=== PATIENT | male | born 1945 | race Caucasian/White ===

== ENCOUNTER → 2016-10-01 | Outpatient (CLI) | payer OTHER, BC ==
[~2016-10-01] MED LIST: ASPIR 8181 MG PO; BENEFIBER1 EAC1 PO; BISACODYL SUPP10 MG RECTAL; CRESTOR10 MG PO; DEMADEX20 MG PO; GLUCOPHAGE XR500 MG PO; LIPITOR10 MG PO; LISINOPRIL20 MG PO; MAG-AL PLUS XS30 ML PO; METFORMIN HCL500 MG PO; NABUMETONE 500500 M1 PO; NEURONTIN 300300 M1 PO; NORCO 10-325 T1 EACH PO; PREDNISONE 20 M20 MG PO; SENNA PO; STOOL SOFTENER100 MG PO; TRAMADOL 50 MG50 MG PO; TYLENOL325 MG PO
== END ==
LOC: RAD 10:37
DX: Z01.811 Encounter for preprocedural respiratory examination (principal); J18.9 Pneumonia, unspecified organism; Z85.46 Personal history of malignant neoplasm of prostate

== ENCOUNTER 2016-11-25 06:09 | Inpatient (IN) | payer OTHER, BC ==
[2016-11-13 08:48] LABS: URINE BILIRUBIN NEGATIVE (Negative); URINE BLOOD NEGATIVE (Negative); URINE COLOR YELLOW; URINE GLUCOSE-RANDOM* NEGATIVE (Negative); URINE KETONES NEGATIVE (Negative); URINE LEUKOCYTES-REFLEX NEGATIVE (Negative); URINE PROTEIN (DIPSTICK) NEGATIVE (Negative); URINE UROBILINOGEN 0.2 E.U./dl (0.2-1.0)
[2016-11-13 08:50] LABS: HEMOGLOBIN 12.2 gm/dL (14.0-18.0); MCH 32.9 pg (26.0-34.0); MCHC 33.7 g/dL (28.0-37.0); MCV 97.5 fL (80.0-100.0); RBC 3.69 mil/uL (4.50-6.00); RDW 13.4 % (10.5-14.5); WBC 5.9 thou/uL (4.0-11.0)
[2016-11-13 08:52] LABS: PROTIME 9.7 Seconds (9.3-11.4)
[2016-11-13 08:53] LABS: ALBUMIN 3.9 g/dL (3.4-5.0); CALCIUM 9.3 mg/dL (8.5-10.1); POTASSIUM 4.2 mmol/L (3.5-5.1)
[~2016-11-25] VITALS: Ht 177.8 cm; Wt 166.0 kg
--- NOTE | ~2016-11-25 | EKG ---
[address] [address] ELECTROCARDIOGRAM REPORT Name: ELLEN PINA Room #: PRE IN [facility]#: [id number] Admission: Attend Phys: Christopher Moise MD Discharge: Date of : 47 Report #: [id number] THIS REPORT FOR: //name// [facility] Test Date: 2016-11-13 Test Time: 08:36:35 Pat Name: ELLEN PINA Department: Room: Gender: Registered Nurse Step Down: ROMAN MCDONALD : 1945 Requested By: Christopher Moise Order Number: [id number] MD: Adriano Mullins Measurements Intervals Weir Rate: 83 P: 82 RI: 217 QRS: 86 QRSD: 108 T: 22 QT: 388 QTc: 456 Interpretive Statements Sinus rhythm Borderline prolonged RI interval Borderline right axis deviation Baseline wander in lead(s) V2,V3,V4,V5,V6 Compared to ECG 05/03/2015 18:27:19 Sinus tachycardia no longer present Electronically Signed On 11-17-2016 21:49:59 CDT by Adriano Mullins [email or web address] <ELECTRONICALLY SIGNED> By: Adriano Mullins MD 11/17/16 2149 0836 Adriano Mullins MD /EPI
--- NOTE | ~2016-11-25 | D ---
[facility] [place] [address] DISCHARGE SUMMARY Name: ELLEN PINA Shawn Room #: 407[facility]P [facility] ..#: [id number] Admission: 12/23/16 Attend Phys: Christopher Moise MD Discharge: 12/27/16 Date of : 47 Report #: [id number] THIS REPORT FOR: //name// CC: Christopher Ding DATE OF SERVICE: 12/27/2016 FINAL DIAGNOSES: 1. End-stage degenerative arthritis, left knee. 2. Chronic morbid obesity. 3. Diabetes type 2. 4. Hypertension. 5. Pulmonary insufficiency and sleep apnea related to obesity and narcotic medications. OPERATIONS AND PROCEDURES: Left total knee arthroplasty. HISTORY OF PRESENT ILLNESS: This morbidly obese 71-year-old gentleman has had problems with degenerative arthritis in both knees. He underwent a right total knee replacement in the past with good result. He is admitted at this time for a left total knee replacement. We had multiple discussions and lengthy evaluation preoperatively to try to optimize his general medical condition. He is at significantly increased risk for problems given his morbid obesity. Recently, his glucose have been satisfactory and well maintained. His pulmonary status is fair due to his obesity and sleep apnea symptoms, he is felt to be a satisfactory candidate for this procedure, although he is at increased risk. HOSPITAL COURSE: The patient was admitted and taken to the operating room on 12/23. He underwent a left total knee replacement, which he tolerated surprisingly well. Postoperatively, his discomfort was significant and controlled with IV analgesics and oral analgesics. He did have a period of some relative oversedation and mild hypoxia, which was improved by O2 supplementation and decreasing his narcotic medications. He was able to resume his regular preoperative diet and his routine preoperative medications. He was seen by therapy and slowly advanced with some difficulty given his size. At this point, he seems to be safe and independent with ambulation using a walker. His pulmonary function has improved, initially he required 4 liters of oxygen with good O2 sats at that level and today is now back on room air with adequate O2 sats following his physical therapy and ambulation. He seems to be safe and ready for discharge home. We will plan some visiting therapy at home and continue routine medical management. DISCHARGE MEDICATIONS: Include torsemide 20 mg daily, Lipitor 10 mg daily, tramadol 50 mg q.4 hours p.r.n. mild pain, hydrocodone 10 mg p.o. q.[address] [address] DISCHARGE SUMMARY Name: ELLEN PINA Room #: 407[facility] ..#: [id number] Admission: 12/23/16 Attend Phys: Christopher Moise MD Discharge: 12/27/16 Date of : 47 Report #: [id number] p.r.n. more severe pain, amlodipine 5 mg daily, glyburide 5 mg b.i.d., mirabegron 50 mg once daily, Pravachol 80 mg at bedtime, Hytrin 5 mg at bedtime, metformin 1000 mg b.i.d., and Xarelto 10 mg daily for the coming 3 weeks. He will continue activity with assistance at home using a walker for protected ambulation. I have asked the patient or to call me should there be any problems or questions. We can see him back in the office next week for routine evaluation and then the following week for suture removal. He will follow up with his primary care physician with regard to general medical management. <ELECTRONICALLY SIGNED> By: Christopher Moise MD 12/30/16 0753 1359 1517 Christopher Moise MD /nt
--- NOTE | ~2016-11-25 | O ---
[facility] [place] [address] OPERATIVE REPORT Name: ELLEN PINA Room #: 407-P [facility] IN M.R.#: [id number] Admission: 12/23/16 Attend Phys: Christopher Moise MD Discharge: Date of : 47 Report #: [id number] THIS REPORT FOR: //name// CC: Christopher Ding DATE OF SERVICE: 12/23/2016 DATE OF SERVICE: 12/23/2016 PREOPERATIVE DIAGNOSIS: End-stage degenerative arthritis, left knee. POSTOPERATIVE DIAGNOSIS: End-stage degenerative arthritis, left knee. PROCEDURE: Left total knee arthroplasty. SURGEON: Christopher Moise MD INDICATIONS: This heavy 71-year-old gentleman has problems with progressive degenerative arthritis in multiple joints. He underwent previous total joint arthroplasty in the opposite extremity. He now has progressive pain and deformity involving the left knee. Clinical evaluation and x-rays reveal rather severe end-stage degenerative arthritis with moderate varus malalignment and medial compartment narrowing. We have tried to stabilize his other general medical issues as best we can as he does have problems with poorly controlled diabetes and obesity. Nevertheless, he seems to be stable and a satisfactory candidate for total joint replacement. He and his understand the potential risks and benefits well. We have discussed this at some length with the patient and with his primary care physician, Dr. Ding. DESCRIPTION OF PROCEDURE: The patient was taken to the operating room where he was placed under general anesthesia. A femoral nerve block was also applied. The left knee and leg were meticulously prepped and draped. Prophylactic intravenous antibiotics were administered. A thigh tourniquet was inflated to 325 mmHg. An anterior longitudinal skin incision was made and carried through the medial retinaculum. The patella was reflected laterally. Moderately severe degenerative change in all 3 compartments was noted. Intramedullary guides were used on both the femur and the tibia. The Castro and NephMotivano knee system was utilized. The femur was cut in 5 degrees of valgus. The femur seemed best suited for a size 6 femoral component. The tibial surface was resected perpendicular to the long axis of the tibia. A size 6 tibial component also seemed to fit nicely. The patellar surface was resected and a 38 mm patellar button seemed to fit most appropriately. Appropriate anchor holes were created. A trial reduction was performed and the knee seemed best suited for a 15-mm polyethylene insert. This allowed full knee extension and satisfactory flexion with acceptable stability. The trial components were removed. The [address] [address] OPERATIVE REPORT Name: ELLEN PINA Shawn Room #: 407-P [facility] IN .R.#: [id number] Admission: 12/23/16 Attend Phys: Christopher Moise MD Discharge: Date of : 47 Report #: [id number] intramedullary canal was blocked with a bone block on both the femoral and tibial sides. The surfaces were thoroughly irrigated and dried. Methyl methacrylate cement was mixed and injected into the porous surface of the proximal tibia. The Castro and Nephew size 6, left tibial component was then impacted into position. It seated nicely and appeared to be secure. Excess cement was removed from around its margin. A 15-mm polyethylene insert was snapped into place. It also seated nicely and appeared to be secure. A size 6 left femoral component was then impacted on to the distal femur in a noncemented technique. The patellar button was cemented into place and secured with a patellar clamp until the cement had hardened. All excess cement was removed from around its margin. Alignment, range of motion and stability were once again assessed and felt to be satisfactory. A single Hemovac drain was left in the wound exiting through a separate lateral stab incision. The tourniquet was then deflated after a total tourniquet time of 60 minutes. The fascia was closed with multiple #1 Vicryl sutures. The subcutaneous tissues were closed with 0 Monocryl. The skin was closed with skin lópez. A sterile dressing was applied. The patient was then awakened and returned to recovery room in good condition. <ELECTRONICALLY SIGNED> By: Christopher Moise MD 12/24/16 0758 1211 1240 Christopher Moise MD /nt
[~2016-11-25 06:09] MED LIST changes: +GLUCOPHAGE1000 MG PO; +GLYBURIDE 5 MG T5 M1 PO; +HYTRIN 5 M5 MG/1 CAP PO; +MYRBETRIQ50 MG PO; +NORVASC5 MG PO; +PRAVACHOL80 MG PO
[2016-12-10 09:09] LABS: URINE BILIRUBIN NEGATIVE (Negative); URINE BLOOD NEGATIVE (Negative); URINE COLOR YELLOW; URINE GLUCOSE-RANDOM* NEGATIVE (Negative); URINE KETONES NEGATIVE (Negative); URINE NITRITE NEGATIVE (Negative); URINE PROTEIN (DIPSTICK) NEGATIVE (Negative); URINE SPECIFIC GRAVITY 1.015 (1.003-1.035); URINE UROBILINOGEN 0.2 E.U./dl (0.2-1.0)
[2016-12-10 09:12] LABS: HEMOGLOBIN 13.1 gm/dL (14.0-18.0); MCH 33.8 pg (26.0-34.0); MCHC 35.5 g/dL (28.0-37.0); MCV 95.2 fL (80.0-100.0); RBC 3.89 mil/uL (4.50-6.00); RDW 13.2 % (10.5-14.5); WBC 5.8 thou/uL (4.0-11.0)
[2016-12-10 09:21] LABS: ALBUMIN 4.1 g/dL (3.4-5.0); CALCIUM 9.3 mg/dL (8.5-10.1); POTASSIUM 4.2 mmol/L (3.5-5.1)
[2016-12-10 09:25] LABS: PROTIME 9.9 Seconds (9.3-11.4)
[2016-12-11 02:11] LABS: GLYCOHEMOGLOBIN (HGB A1C) 6.4 % (4.8-5.6)
[2016-12-23] VITALS (8 sets, daily range): BP systolic 128–189; BP diastolic 65–92
[2016-12-24 00:59] VITALS: BP 132/62
[2016-12-24 04:26] VITALS: BP 123/62
[2016-12-24 05:30] LABS: HEMOGLOBIN 9.9 gm/dL (14.0-18.0); MCH 31.9 pg (26.0-34.0); MCHC 32.9 g/dL (28.0-37.0); MCV 96.8 fL (80.0-100.0); RBC 3.1 mil/uL (4.50-6.00)
[2016-12-24 07:43] VITALS: BP 138/54
[2016-12-24 09:14] LABS: CALCIUM 8.4 mg/dL (8.5-10.1); CREATININE 0.9 mg/dL (0.7-1.3); POTASSIUM 4.4 mmol/L (3.5-5.1)
[2016-12-24 11:53] VITALS: BP 132/53
[2016-12-24 16:03] VITALS: BP 115/92
[2016-12-24 19:52] VITALS: BP 161/65
[2016-12-25 04:35] VITALS: BP 159/76
[2016-12-25 07:57] LABS: HEMATOCRIT 29.1 % (42.0-52.0); HEMOGLOBIN 9.8 gm/dL (14.0-18.0); MCH 32.4 pg (26.0-34.0); MCHC 33.8 g/dL (28.0-37.0); MCV 95.8 fL (80.0-100.0); RBC 3.04 mil/uL (4.50-6.00); WBC 11.2 thou/uL (4.0-11.0)
[2016-12-25 08:00] VITALS: BP 151/64
[2016-12-25 10:14] VITALS: BP 151/64
[2016-12-25 16:00] VITALS: BP 134/62
[2016-12-26 04:00] VITALS: BP 153/75
[2016-12-26 06:07] LABS: HEMATOCRIT 29.7 % (42.0-52.0); HEMOGLOBIN 9.8 gm/dL (14.0-18.0); MCH 32.1 pg (26.0-34.0); MCHC 32.9 g/dL (28.0-37.0); MCV 97.8 fL (80.0-100.0); RBC 3.04 mil/uL (4.50-6.00); RDW 12.7 % (10.5-14.5); WBC 11.5 thou/uL (4.0-11.0)
[2016-12-26 06:08] LABS: URINE BILIRUBIN NEGATIVE (Negative); URINE BLOOD NEGATIVE (Negative); URINE COLOR YELLOW; URINE GLUCOSE-RANDOM* NEGATIVE (Negative); URINE KETONES NEGATIVE (Negative); URINE LEUKOCYTES-REFLEX NEGATIVE (Negative); URINE PROTEIN (DIPSTICK) 1+ (Negative); URINE SPECIFIC GRAVITY 1.025 (1.003-1.035); URINE UROBILINOGEN 0.2 E.U./dl (0.2-1.0)
[2016-12-26 06:33] VITALS: BP 133/62
[2016-12-26 06:37] LABS: CASTS None Seen /LPF (None Seen); SQUAMOUS 0-3 Few /LPF (0-3)
[2016-12-26 06:38] LABS: URINE WBC-REFLEX 0-5 Rare /HPF (0-5)
[2016-12-26 06:39] LABS: CRYSTALS None Seen /LPF (None Seen); URINE RBC None Seen /HPF (0-2)
[2016-12-26 07:50] VITALS: BP 125/64
[2016-12-26 08:06] LABS: CALCIUM 9.1 mg/dL (8.5-10.1); CREATININE 1.2 mg/dL (0.7-1.3); POTASSIUM 4.4 mmol/L (3.5-5.1)
[2016-12-26 20:21] VITALS: BP 155/61
[2016-12-27] VITALS: BP 123/60
[2016-12-27 06:18] VITALS: BP 160/73
[2016-12-27 07:53] VITALS: BP 163/75
[2016-12-27 09:18] LABS: HEMATOCRIT 26.9 % (42.0-52.0); MCH 32.1 pg (26.0-34.0); MCHC 33.5 g/dL (28.0-37.0); MCV 95.7 fL (80.0-100.0); RBC 2.81 mil/uL (4.50-6.00); WBC 7.7 thou/uL (4.0-11.0)
[2016-12-27 09:30] LABS: CALCIUM 8.9 mg/dL (8.5-10.1)
[2016-12-27 12:14] VITALS: BP 151/64
== END 2016-12-27 15:13 | disposition home health service (06) | DRG 470 ==
LOC: PRE 06:09 → 4N 12-23 06:30 → TBA 12-23 06:30 → PRE 12-23 08:25 → 4N 12-23 14:00 → ENTRNSPT 12-27 14:58 → EDTRNSPTSTS 12-27 15:01 → 4N 12-27 15:13
PROVIDERS: Internal Medicine; Nurse Practitioner Acute Care; Orthopaedic Surgery
PROC: 0SRD0J9 Replacement of Left Knee Joint with Synthetic Substitute, Cemented, Open Approach (ICD-10-PCS; principal; 2016-12-23)
DX: M17.12 Unilateral primary osteoarthritis, left knee (principal); Z68.43 Body mass index [BMI] 50.0-59.9, adult; R65.10 Systemic inflammatory response syndrome (SIRS) of non-infectious origin without acute organ dysfunction; J98.11 Atelectasis; E66.01 Morbid (severe) obesity due to excess calories; E11.9 Type 2 diabetes mellitus without complications; I10 Essential (primary) hypertension; T40.605A Adverse effect of unspecified narcotics, initial encounter; E87.70 Fluid overload, unspecified; J98.4 Other disorders of lung; E78.00 Pure hypercholesterolemia, unspecified; M17.11 Unilateral primary osteoarthritis, right knee; G47.30 Sleep apnea, unspecified; E78.5 Hyperlipidemia, unspecified; Z88.8 Allergy status to other drugs, medicaments and biological substances; Z85.46 Personal history of malignant neoplasm of prostate; Z98.49 Cataract extraction status, unspecified eye; Z90.49 Acquired absence of other specified parts of digestive tract; Z98.52 Vasectomy status
CPT/HCPCS: 10790; 50010; 50101; 50415; 50954; 51130; 51225; 51412; 51771; 53000; 53364; 56525; 62110; 62900; 70005

== ENCOUNTER 2017-03-20 07:43 | Day surgery (SDC) | payer OTHER, BC ==
--- NOTE | ~2017-03-20 | O ---
[facility] [place] [address] OPERATIVE REPORT Name: ELLEN PINA Room #: 150-6 [facility] M..#: [id number] Admission: 03/20/17 Attend Phys: Christopher Moise MD Discharge: Date of : 47 Report #: [id number] THIS REPORT FOR: //name// CC: Christopher Ding DATE OF SERVICE: 03/20/2017 PREOPERATIVE DIAGNOSES: Status post left total knee arthroplasty with postoperative arthrofibrosis and limited flexion range of motion. POSTOPERATIVE DIAGNOSES: Status post left total knee arthroplasty with postoperative arthrofibrosis and limited flexion range of motion. PROCEDURE: Manipulation under anesthesia, left knee for lysis of adhesions and improve range of motion. SURGEON: Christopher Moise MD INDICATIONS: This 72-year-old obese gentleman underwent left total knee arthroplasty 2 months ago. The surgery went well and he has done nicely, but has made rather poor progress with range of motion with flexion from 0 through 90 degrees. We have elected to go ahead with manipulation under anesthesia to see if we can get any better knee flexion. DESCRIPTION OF PROCEDURE: The patient was taken to the operating room where he placed under a brief sedation anesthetic. The left knee was then manipulated. Initially, he has full knee extension and flexion to 90 degrees with a gentle, but firm and repetitive manipulation, I was able to gradually achieve a better flexion, I did feel some soft tissue crepitus, which would be consistent with lysis of adhesions and arthrofibrosis. Gradually, the range of motion could be extended to a flexion of about 115-120 degrees. I doubt that we will get much movement beyond that level given his large size. The knee continues to have full knee extension and there was good stability with varus and valgus stress. No other abnormalities were identified. After 10-15 minutes of manipulation, I felt we had achieved all the additional movement that we probably could. The patient was then awakened and returned to recovery room in good condition. He will continue his outpatient therapy program. By: 1056 1221 Christopher Moise MD /nt
[2017-03-20 08:37] VITALS: BP 137/77
[2017-03-20 09:08] LABS: CALCIUM 9.2 mg/dL (8.5-10.1); CREATININE 0.9 mg/dL (0.7-1.3); POTASSIUM 4.2 mmol/L (3.5-5.1)
[2017-03-20 11:28] VITALS: BP 137/77
== END 2017-03-20 15:30 | disposition home or self-care (01) ==
LOC: OR 07:43 → TBA 07:44 → OR 15:30
PROVIDERS: Orthopaedic Surgery
DX: M24.662 Ankylosis, left knee (principal); Z98.890 Other specified postprocedural states; E11.9 Type 2 diabetes mellitus without complications
CPT/HCPCS: 50010; 50101; 62110; 62850; 70005

== ENCOUNTER → 2017-05-05 | Outpatient (CLI) | payer OTHER, BC ==
--- NOTE | ~2017-05-05 | 2DMMODE ---
[facility] [place] [address] 2 D/M-MODE ECHOCARDIOGRAM Name: ELLEN PINA Room #: REG CL [facility]#: [id number] Admission: 05/05/17 Attend Phys: Zander Contreras MD Discharge: Date of : 47 Date of Service: 05/05/17 1014 Report #: [id number] THIS REPORT FOR: //name// APPROVED REPORT Study performed: 05/05/2017 08:50:42 EXAM: Comprehensive 2D, Doppler, and color-flow Echocardiogram Patient Location: Echo lab Status: routine BSA: 2.73 HR: 82 bpm BP: 180/80 mmHg Other Information Study Quality: Technically Difficult Technically limited study due to body habitus. Indications CAD Hypertension/HDD Echo Enhancing Agent Indication: Endocardial border delineation Agent(s) / Amount(s) Used: Optison 5 cc 2D Dimensions RVDd: 41.49 mm LVEF(%): 50.45 (>50%) IVSd: 15.95 (7-11mm) LVOT Diam: 22.60 (18-24mm) LVDd: 47.58 mm PWd: 16.71 (7-11mm) Ascending Ao: 40.26 (22-36mm) LVDs: 35.38 (25-40mm) Aortic Root: 39.03 mm IVC: 17.00 mm Hernández's LVEF: 50.45 % Volumes Left Atrial Volume (Systole) Single Plane 4CH: 38.11 mL Single Plane 2CH: 28.77 mL LA ESV Index: 13.00 mL/m2 Aortic Valve AoV Peak Latrell.: 1.08 m/s AO Peak Gr.: 4.63 mmHg LVOT Max P.47 mmHg [facility] [address] [place] [address] 2 D/M-MODE ECHOCARDIOGRAM Name: ELLEN PINA TOMASZ Room #: REG [facility]#: [id number] Admission: 05/05/17 Attend Phys: Zander Contreras MD Discharge: Date of : 47 Date of Service: 05/05/17 1014 Report #: [id number] LVOT Max V: 0.79 m/s MARGIE Vmax: 2.93 cm2 Mitral Valve E/A Ratio: 0.9 MV Decel. Time: 330.92 ms MV E Max Latrell.: 0.80 m/s MV A Latrell.: 0.88 m/s MV PHT: 95.97 ms IVRT: 89.97 ms Pulmonary Valve PV Peak Latrell.: 1.20 m/s PV Peak Gr.: 5.73 mmHg Tricuspid Valve RAP Estimate: 5.00 mmHg Left Ventricle The left ventricle is normal size. Mild concentric left ventricular hypertrophy. The overall left ventricular systolic function appears normal. LVEF is 50-55%. Mild diastolic dysfunction is present (impaired relaxation pattern). Right Ventricle Right ventricle is not well visualized. Atria The left atrium size is normal. Right atrium is dilated. Aortic Valve The aortic valve is normal in structure. No aortic regurgitation is present. There is no aortic valvular stenosis. Mitral Valve Mitral valve is not well visualized. There is no mitral valve regurgitation noted. No evidence of mitral valve stenosis. Tricuspid Valve The tricuspid valve is normal in structure. Trace tricuspid regurgitation. Unable to assess PA pressure. Pulmonic Valve Pulmonic valve is not well visualized. Mild pulmonic regurgitation. Great Vessels [facility] [place] [address] 2 D/M-MODE ECHOCARDIOGRAM Name: ELLEN PINA TOMASZ Room #: REG CL [facility]#: [id number] Admission: 05/05/17 Attend Phys: Zander Contreras MD Discharge: Date of : 47 Date of Service: 05/05/17 1014 Report #: [id number] Aortic root is mildly dilated. The ascending aorta is mildly dilated at 4.0cm. Aortic arch is not well visualized. IVC is normal in size and collapses >50% with inspiration. Pericardium There is no pericardial effusion. <Conclusion> The left ventricle is normal size. Mild concentric left ventricular hypertrophy. The overall left ventricular systolic function appears normal. Mild diastolic dysfunction is present (impaired relaxation pattern). The left atrium size is normal. The aortic valve is normal in structure. There is no mitral valve regurgitation noted. There is no pericardial effusion. <ELECTRONICALLY SIGNED> By: Zander Contreras MD 05/05/17 1014 1014 1014 Zander Contreras MD /INF
== END ==
LOC: CV 08:21 → NUC 09:19 → CV 09:20
DX: I51.7 Cardiomegaly (principal); I25.10 Atherosclerotic heart disease of native coronary artery without angina pectoris; I10 Essential (primary) hypertension

== ENCOUNTER → 2019-05-13 | Outpatient (CLI) | payer OTHER, BC | END | disposition home or self-care (01) | LOC: SJCVCIMAG 08:51 | DX: I37.1 Nonrheumatic pulmonary valve insufficiency (principal); I25.10 Atherosclerotic heart disease of native coronary artery without angina pectoris; G47.33 Obstructive sleep apnea (adult) (pediatric); E78.00 Pure hypercholesterolemia, unspecified; E11.9 Type 2 diabetes mellitus without complications; Z79.84 Long term (current) use of oral hypoglycemic drugs; Z79.899 Other long term (current) drug therapy ==

== ENCOUNTER → 2019-11-11 | Outpatient (CLI) | payer OTHER, BC | LOC: SJCVC 11:44 | PROVIDERS: ATTEND Internal Medicine Cardiovascular Disease | DX: I25.10 Atherosclerotic heart disease of native coronary artery without angina pectoris (principal); I10 Essential (primary) hypertension; E78.00 Pure hypercholesterolemia, unspecified; E66.2 Morbid (severe) obesity with alveolar hypoventilation; Z79.899 Other long term (current) drug therapy; Z87.891 Personal history of nicotine dependence ==

== ENCOUNTER → 2020-08-10 | Outpatient (CLI) | payer OTHER, BC | LOC: SJCVC 09:44 | PROVIDERS: ATTEND Internal Medicine Cardiovascular Disease | DX: I25.10 Atherosclerotic heart disease of native coronary artery without angina pectoris (principal); C61 Malignant neoplasm of prostate; I10 Essential (primary) hypertension; E78.00 Pure hypercholesterolemia, unspecified; E66.2 Morbid (severe) obesity with alveolar hypoventilation; R60.9 Edema, unspecified; M19.90 Unspecified osteoarthritis, unspecified site; E78.5 Hyperlipidemia, unspecified; E11.9 Type 2 diabetes mellitus without complications; Z79.82 Long term (current) use of aspirin; Z79.899 Other long term (current) drug therapy; Z79.84 Long term (current) use of oral hypoglycemic drugs; Z87.891 Personal history of nicotine dependence; Z82.49 Family history of ischemic heart disease and other diseases of the circulatory system; Z80.1 Family history of malignant neoplasm of trachea, bronchus and lung; Z80.8 Family history of malignant neoplasm of other organs or systems ==

== ENCOUNTER → 2021-05-14 | Outpatient (CLI) | payer OTHER, BC | LOC: SJCVCIMAG 09:34 → SJCVC 15:18 | PROVIDERS: ATTEND Internal Medicine Cardiovascular Disease | DX: I25.9 Chronic ischemic heart disease, unspecified (principal); I25.10 Atherosclerotic heart disease of native coronary artery without angina pectoris; E78.00 Pure hypercholesterolemia, unspecified; I10 Essential (primary) hypertension; E66.2 Morbid (severe) obesity with alveolar hypoventilation; R60.9 Edema, unspecified; C61 Malignant neoplasm of prostate; E11.9 Type 2 diabetes mellitus without complications; Z90.49 Acquired absence of other specified parts of digestive tract; Z98.890 Other specified postprocedural states; Z88.8 Allergy status to other drugs, medicaments and biological substances; Z79.82 Long term (current) use of aspirin; Z79.84 Long term (current) use of oral hypoglycemic drugs; Z79.899 Other long term (current) drug therapy; Z82.49 Family history of ischemic heart disease and other diseases of the circulatory system; Z87.891 Personal history of nicotine dependence; Z72.89 Other problems related to lifestyle ==